=== PATIENT | female | born 1965 | race Caucasian/White ===

== ENCOUNTER 2017-02-07 15:25 | Emergency (ER) | payer MEDICARE, OTHER ==
[2017-02-07] MEDS ORDERED: NEURONTIN600 M1 PO (15:40)
[2017-02-07] MEDS ORDERED: PRISTIQ ER100 MG PO (15:40)
[2017-02-07] MEDS ORDERED: BELSOMRA20 MG PO (15:40)
[2017-02-07] MEDS ORDERED: REQUIP1 M1 PO (15:40)
[2017-02-07] MEDS ORDERED: KLONOPIN1 M1 PO (15:40)
[2017-02-07] MEDS ORDERED: CELEBREX200 M1 PO (15:41)
[2017-02-07] MEDS ORDERED: HYDROXYZINE HCL50 M1 PO (15:41)
[2017-02-07 16:40] LABS: BASO % 0.1 % (0-2); EOS % 1.3 % (0-7); EOSINOPHIL ABSOLUTE COUNT 0.1 tho/cmm (0.0-0.7); HCT-HEMATOCRIT 37.2 % (34.0-49.0); HGB-HEMOGLOBIN 12.7 gm/dl (12.0-15.5); IMMATURE GRANULOCYTES ABSOLUTE 0.02 tho/cmm (0-0.03); IMMATURE GRANULOCYTES PERCENT 0.2 % (0-0.3); LYMPH % 24.6 % (20-45); LYMPH ABSOLUTE COUNT 2.3 tho/cmm (0.8-4.5); MCH (MEAN CORPUSCULAR HGB) 28.2 pg (28.0-32.0); MCHC MEAN CORPUSCULAR HGB CONC 34.1 % (32.0-36.0); MCV (MEAN CELL VOLUME) 82.5 fl (82.0-96.0); MEAN PLATELET VOLUME 10.8 cmc (9.4-12.4); MONO % 6.3 % (0-12); MONOCYTE ABSOLUTE COUNT 0.6 tho/cmm (0.0-1.2); NEUTROPHIL ABSOLUTE COUNT 6.2 tho/cmm (1.6-8.0); NEUTROPHIL-AUTOMATED 6.2 tho/cmm (1.6-8.0); NEUTROPHILS % 67.5 % (40-80); PLATELET COUNT 342 tho/cmm (150-450); RED BLOOD COUNT 4.51 mil/cmm (4.00-5.20); RED CELL DISTRIBUTION WIDTH 14.4 % (12.4-16.4); WHITE BLOOD COUNT 9.2 tho/cmm (4.0-10.0)
[2017-02-07 16:40] LABS: URINE BILIRUBIN NEGATIVE (NEG); URINE BLOOD SMALL (NEG); URINE GLUCOSE (UA) NEGATIVE (NEG); URINE KETONE NEGATIVE (NEG); URINE LEUKOCYTE ESTERASE POSITIVE (NEG); URINE NITRITE POSITIVE (NEG); URINE PROTEIN NEGATIVE (NEG)
[2017-02-07 16:41] LABS: URINE APPEARANCE HAZY; URINE COLOR YELLOW
[2017-02-07 16:53] LABS: PREGNANCY-SERUM NEGATIVE (NEGATIVE)
[2017-02-07 16:59] LABS: URINE BACTERIA 4+; URINE EPITHELIAL CELLS 0-3 /[HPF] (0-10); URINE RBC 0-1 /[HPF] (0-5)
[2017-02-07 17:02] LABS: ALBUMIN 3.8 g/dl (3.5-5.0); ALKALINE PHOSPHATASE 96 U/L (33-138); ALT/SGPT 30 U/L (12-78); ANION GAP 10 mmol/L (0-20); AST/SGOT 22 U/L (10-40); BILIRUBIN,TOTAL 0.3 mg/dl (0-1.5); BLOOD UREA NITROGEN 11 mg/dl (6-24); CARBON DIOXIDE-VENOUS 28 mmol/L (22-32); CHLORIDE 106 mmol/l (96-110); CREATININE 0.88 mg/dl (0.50-1.10); GLUCOSE 93 mg/dL (70-110); POTASSIUM 3.8 mmol/L (3.7-5.1); SODIUM 140 mmol/L (135-145); eGFR VALUE FOR BLACK 88 mL/Min
[2017-02-07] MEDS ORDERED: MACROBID 100 M100 M1 PO (17:51)
[2017-02-07] MEDS ORDERED: PYRIDIUM200 M2 PO (17:51)
[2017-02-08] MEDS ORDERED: MACROBID 100 M100 M1 PO (00:52)
[2017-02-08] MEDS ORDERED: PHENAZOPYRIDINE95 MG PO (00:53)
[2017-02-18] MEDS ORDERED: TYLENOL325 M2 PO (11:33)
== END 2017-02-07 19:00 ==
LOC: EDMED 15:25
PROVIDERS: Emergency Medicine
DX: N30.90 Cystitis, unspecified without hematuria (principal); M79.672 Pain in left foot; M79.671 Pain in right foot; G89.29 Other chronic pain
CPT/HCPCS: J1885

== ENCOUNTER 2017-02-08 00:33 | Emergency (ER) | payer MEDICARE, OTHER ==
[~2017-02-08 00:33] MED LIST: BELSOMRA20 MG PO; CELEBREX200 M1 PO; HYDROXYZINE HCL50 M1 PO; KLONOPIN1 M1 PO; MACROBID 100 M100 M1 PO; NEURONTIN600 M1 PO; PRISTIQ ER100 MG PO; PYRIDIUM200 M2 PO; REQUIP1 M1 PO
[2017-02-08] MEDS ORDERED: MACROBID 100 M100 M1 PO (00:52)
[2017-02-08] MEDS ORDERED: PHENAZOPYRIDINE95 MG PO (00:53)
[2017-02-18] MEDS ORDERED: TYLENOL325 M2 PO (11:33)
== END 2017-02-08 02:45 ==
LOC: EDMED 00:33
DX: M79.672 Pain in left foot (principal); M79.671 Pain in right foot; F41.9 Anxiety disorder, unspecified; Z88.0 Allergy status to penicillin
CPT/HCPCS: J1885